=== PATIENT | female | born 1985 | race Caucasian/White ===

== ENCOUNTER 2016-11-13 05:55 | Day surgery (SDC) | payer OTHER ==
[~2016-11-13] VITALS: Ht 170.2 cm; Wt 62.1 kg
[2016-11-13 06:56] VITALS: Ht 170.2 cm; Wt 62.1 kg
[2016-11-13 06:57] VITALS: BP 103/65; PULSE 76; RESP 15
[2016-11-13 07:29] VITALS: BP 99/57; PULSE 77; RESP 20
[2016-11-13] MEDS ORDERED: FENTAnyl 50 MCG/ML VIAL ONE (07:32)
[2016-11-13] MEDS ORDERED: MIDAZOLAM 1 MG/ML 2 ML INJ ONE (07:32)
--- NOTE | 2016-11-13 07:53 | GILP ---
DATE OF PROCEDURE: 11/13/2016 NAME OF PROCEDURE: Esophagogastroduodenoscopy and biopsy. SURGEON: Shannan Bonilla MD PREOPERATIVE DIAGNOSES: 1. Abdominal pain. 2. Chronic heartburn. POSTOPERATIVE DIAGNOSES: 1. Hiatal hernia. 2. Gastroesophageal reflux disease. 3. Gastritis. 4. Gastric mucosal biopsies were taken for Helicobacter pylori test. INDICATION FOR THE PROCEDURE: Ms. Syed Wisdom is a 31-year-old female patient who was complaining of upper abdominal pain and chronic heartburn, not responding to therapy. The patient was schedule d for endoscopic examination for further evaluation. The procedure and possible complications are well explained to the patient. She understood and cons ented to the procedure. DESCRIPTION OF PROCEDURE: Under the influence of fentanyl and Versed, the gastroscope was carefully introduced into the esophagus, and under direct vision, it was advanced to the stomach and through the pylorus into the duodenal bulb and descending duodenum. FINDINGS: ESOPHAGUS: The patient had hiatal hernia and gastroesophageal reflux disease. STOMACH: She had gastritis. Gastric mucosal biopsies were taken for H. pylori test. DUODENUM: Normal. She tolerated the procedure very well, and there was no complication from the procedure. At the end of the procedures, she was awake with stable vital signs, and she was discharged home to the care o f her family. IMPRESSION: 1. Hiatal hernia. 2. Gastroesophageal reflux disease. 3. Gastritis. 4. Gastric mucosal biopsies were taken for Helicobacter pylori test. PLAN: 1. Pantoprazole 40 mg p.o. q. a.m. 2. Zantac 300 mg p.o. at bedtime. 3. Await H. pylori test report. Dictated By: SHANNAN HANNAH/LIDIA Conf#: [id number] DID#: [id number]
[2016-11-13 08:00] VITALS: BP 102/61; PULSE 76; RESP 16
== END 2016-11-13 10:14 | disposition home or self-care (01) ==
LOC: SDS 05:55 → GIL 05:56 → SDS 10:14
PROVIDERS: ATTEND Internal Medicine Gastroenterology
DX: K44.9 Diaphragmatic hernia without obstruction or gangrene (principal); K21.9 Gastro-esophageal reflux disease without esophagitis; K29.70 Gastritis, unspecified, without bleeding
CPT/HCPCS: 43239; 84703; 87081; J2250; J3010; Z7610